=== PATIENT | female | born 1995 | race Caucasian/White ===

== ENCOUNTER → 2021-02-19 13:23 | Outpatient (BNVA) | payer OTHER, SELFPAY | PROVIDERS: PCP Nurse Practitioner Family; Visit Provider Nurse Practitioner Family | DX: J02.9 Acute pharyngitis, unspecified (principal) | CPT/HCPCS: 87071; 87880 ==

== ENCOUNTER → 2022-08-28 10:44 | Outpatient (BNVA) | payer OTHER, SELFPAY | PROVIDERS: PCP Nurse Practitioner Family; Visit Provider Family Medicine | DX: R79.89 Other specified abnormal findings of blood chemistry (principal) | CPT/HCPCS: 84144 ==

== ENCOUNTER 2023-02-25 20:13 | Emergency (ER) | payer OTHER, SELFPAY ==
[2023-02-25 20:19] VITALS: BP 141/79; PULSE 97; RESP 18; TEMP 36.9; O2SAT 95; BMI 28.3
[2023-02-25 20:23] VITALS: O2SAT 96
--- NOTE | 2023-02-25 20:28 | USR_ITS ---
PROCEDURE INFORMATION: Exam: US Duplex Left Lower Extremity Veins, Limited Exam date and time: 02/25/2023 8:35 PM Age: 27 years old Clinical indication: Leg, lower; Left; Patient HX: Pain and swelling posterior lt calf x 4-5 days, 33w 2d . No HX dvt. ; Additional info: Leg swelling TECHNIQUE: Imaging protocol: Real-time duplex ultrasound of the left extremity with 2-D frias scale, color Doppler flow and spectral waveform analysis including responses to compression and other maneuvers (when performed) with image documentation. Limited exam focused on the left lower extremity veins. COMPARISON: No relevant prior studies available. FINDINGS: Left deep veins: Unremarkable. The common femoral, femoral, proximal profunda femoral, femoral, popliteal, posterior tibial, and peroneal veins are patent without thrombus. Normal Doppler waveforms. Normal compressibility and/or augmentation response. Left superficial veins: Unremarkable. Saphenofemoral junction is patent without thrombus. Soft tissues: Unremarkable. US/CV venous duplex [facility] [id number] IMPRESSION: No evidence for deep venous thrombosis in the left lower extremity
--- NOTE | 2023-02-25 20:30 | W.ED.EXTPRO ---
HPI - Extremity Problem General: Chief complaint: Extremity Problem,Nontraumatic Stated complaint: Left leg redness/Swelling 33 weeks preg Time Seen by Provider: 02/25/23 20:15 Source: patient Mode of arrival: ambulatory Limitations: no limitations History of Present Illness: 27-year-old female who is currently 33 weeks states she had some swelling in her left lower leg over the last 2 to 3 days she is concerned she may have a DVT she denies any pain she denies any fevers she has no redness she denies any worsening proving factors has no complaints. Associated symptoms: Deny chest pain, fever(s) or rash Review of Systems Const: Denies: fever(s), chills, body aches or change in appetite Eyes: Denies: blurry vision or eye discomfort ENMT: Denies: throat pain or dental pain Card: Denies: chest pain Resp: Denies: dyspnea GI: Denies: abdominal pain, nausea, vomiting or diarrhea : Denies: dysuria Musc: Reports: extremity swelling Skin/Breast: Denies: rash Neuro: Denies: headache(s) Psych: Denies: depression Paulino/Lymph: Denies: easy bruising All/Imm: Denies: urticaria PFSH ED PFSH: Medical History (Updated 02/25/23 @ 21:47 by Randee Quiñones MD) No pertinent past medical history Surgical History (Updated 02/25/23 @ 20:31 by Randee Quiñones MD) Hx of appendectomy Social History Smoking and tobacco status: never smoked Second hand smoke exposure: No Smoking risk assessment/counseling performed?: No Alcohol intake: never Desire information about alcohol rehabilitation?: No Counseling given: No Desire information about substance/drug rehabilitation?: No Counseling given: No Adopted: No Caregiver/support person: No Lives independently: Yes Household members: spouse Housing: House Marital status: Number of children: 2 Highest education level completed: Some College, No Degree service: No Current occupational status: employed Physical Exam Const: COMMON NORMALS: no acute distress and patient oriented x3 HENMT: COMMON NORMALS: normocephalic HEAD & SCALP: normocephalic Eye: COMMON NORMALS: conjunctivae normal CONJUNCTIVA: Yes conjunctivae normal Neck/C-Spine: COMMON NORMALS: supple Chest: COMMONS NORMALS: normal inspection of the chest Resp: COMMON NORMALS: normal respiratory effort Cardio: COMMON NORMALS: regular rate RATE: regular rate GI: INSPECTION: Yes normal to inspection Extremity: OTHER: slight swelling to left lower leg no warmth to touch Neuro: COMMON NORMALS: patient oriented x3 Psych: COMMON NORMALS: mental status grossly normal Skin: COMMON NORMALS: no rashes or lesions noted GENERAL SKIN EXAM: no rashes or lesions noted Course Vital Signs: Vital signs: Vital Signs Temperature 98.5 F 02/25/23 20:19 Pulse Rate 72 02/25/23 21:36 Respiratory Rate 16 02/25/23 21:36 Blood Pressure 131/80 02/25/23 21:48 Pulse Oximetry 94 02/25/23 21:36 Oxygen Delivery Me thod 02/25/23 21:36 MDM - Extremity (Nontraumatic) Medical Decision Making Patient presents here with slight swelling to left lower leg ultrasound shows no signs of blood clot exam is benign she has good pulses no signs of infection she is stable for discharge she is to follow-up with PCP and return if worsening. Lab Data Radiology Impressions Venous Duplex 02/25/23 20:28 IMPRESSION: No evidence for deep venous thrombosis in the left lower extremity Discharge Plan Discharge Patient Disposition: Home Clinical Impression: Lower extremity edema Condition: Stable Prescriptions: No Action cephalexin 500 mg capsule 500 mg PO TID 10 Days Qty: 30 0RF Discharge Orders: Discharge ED (Routine); Ordered 02/25/23 Ordered By: Randee Quiñones Discharge Diet: Advance as tolerated Discharge Activity: Resume usual activity Patient Instructions: Leg Edema (ED) Coding Level of Care Code ED Analog Design Engineer for Khadra Dwyer
[2023-02-25 21:36] VITALS: PULSE 72; RESP 16; O2SAT 94
[2023-02-25 21:48] VITALS: BP 131/80
[2023-02-25 21:50] VITALS: BP 116/64; PULSE 77; RESP 16; O2SAT 95
[2023-02-25 21:57] VITALS: BP 116/64; PULSE 87; RESP 18; O2SAT 95
--- NOTE | 2023-03-05 12:55 | DCPLANNER ---
foundation relations manager called patient due to no primary care physician - no answer at this time
== END 2023-02-25 21:58 | disposition home or self-care (01) ==
PROVIDERS: Emergency Provider Emergency Medicine
DX: R60.0 Localized edema (principal)
CPT/HCPCS: 93971; 99284